=== PATIENT | male | born 1965 ===

== ENCOUNTER 2016-08-15 06:46 | Day surgery (SDC) | payer MEDICAID ==
[2016-08-15 07:12] VITALS: BMI 31.5
[2016-08-15] MEDS ORDERED: Propofol 10 mg/ml Inj (20 ML) ONE ×2 (08:14)
[2016-08-15] MEDS ORDERED: Midazolam 2 MG/2 ML VIAL ONE (08:14)
--- NOTE | 2016-08-15 08:35 | CP.SDSHP ---
Same Day Surgery H & P - History Proposed Procedure: EGD. Colonoscopy Pre-Op Diagnosis: epigastric pain. rectal bleeding - Previous Medical/Surgical History Cardiac: Hypertension Endocrine/Metabolic: Diabetes - Allergies Allergies: Allergies No Known Allergies Allergy (Verified 08/15/16 07:12) - Current Medications Current Medications: see med list - Physical Exam General Appearance: NAD Mental Status: Alert & Oriented x3 Heart: WNL Lungs: WNL GI: WNL - {Optional Preform as Required} Abdomen: WNL - Impression Impression: 50 year old male with history of HTN, DM, HL here for evaluation of epigastric pain/rectal bleeding for EGD/colonoscopy Pt. Evaluated Today:Candidate for Anesthesia & Procedure: Yes - Date & Time Date: 08/15/16 Time: 08:35 Short Stay Discharge - Short Stay Discharge Admitting Diagnosis/Reason for Visit: EPIGASTRIC PAIN HEMORRHAGE OF ANUS AND RECTUME Disposition: HOME/ ROUTINE
[2016-08-16 15:50] VITALS: TEMP 97.8
[2016-08-16 15:54] VITALS: RESP 13
[2016-08-16 15:55] VITALS: BP 143/84; PULSE 80; O2SAT 95
== END 2016-08-15 12:05 | disposition home or self-care (01) ==
LOC: C.ENDO 06:46
PROVIDERS: ATTEND Internal Medicine Gastroenterology
DX: K63.9 Disease of intestine, unspecified (principal); K64.8 Other hemorrhoids; K62.5 Hemorrhage of anus and rectum; K21.0 Gastro-esophageal reflux disease with esophagitis; K29.70 Gastritis, unspecified, without bleeding; R10.13 Epigastric pain; E11.9 Type 2 diabetes mellitus without complications; I10 Essential (primary) hypertension
CPT/HCPCS: 43239; 45380; 45381; 82948; 88305; J2250; J2704